=== PATIENT | female | born 1970 | race Caucasian/White ===

== ENCOUNTER 2016-06-02 18:06 | Emergency (ER) | payer SELFPAY ==
[~2016-06-02] VITALS: Ht 157.5 cm; Wt 74.1 kg
[2016-06-02 18:27] VITALS: Ht 157.5 cm; Wt 74.1 kg
[2016-06-02] MEDS ORDERED: FAMOTIDINE 20 MG TAB PO ONE (19:30)
[2016-06-02] MEDS ORDERED: ONDANSETRON (ODT) 4 MG TAB ODT STA (19:30)
[2016-06-02] MEDS ORDERED: ACETAMINOPHEN 500 MG TAB PO STA (19:30)
--- NOTE | 2016-06-02 19:46 | ERD ---
ER Documentation Chief Complaint Date/Time DATE: 06/02/16 TIME: 19:44 Chief Complaint upper abd pain x 1 hour HPI This is a 46-year-old female who presents to the emergency department today complaining of upper abdominal pain for the past hour. Patient states that this happened her 2 times in the past. Patient states that the pain radiates to her back sometimes. She states it is intermittent and last about 45 minutes. Patient states she has some nausea but no vomiting. She has not taken any medication for the pain because she did not know what to take. Denies any fevers or chills. ROS All systems reviewed and are negative except as per history of present illness. Medications Home Meds Active Scripts Famotidine* (Pepcid*) 20 Mg Tablet, 20 MG PO BID for 10 Days, TAB Prov:WISAM BLACKWELL PA-C 06/02/16 Ondansetron Hcl* (Zofran*) 4 Mg Tablet, 4 MG PO Q6H for NAUSEA AND/OR VOMITING, #30 TAB Prov:WISAM BLACKWELL PA-C 06/02/16 Acetaminophen* (Tylophen*) 500 Mg Capsule, 1 CAP PO Q6H Y for PAIN AND OR ELEVATED TEMP, #30 CAP Prov:WISAM BLACKWELL PA-C 06/02/16 Tramadol HCl (Tramadol HCl) 50 Mg Tablet, 50 MG PO Q4 Y for PAIN, #20 TAB Prov:WISAM BLACKWELLC 06/02/16 Allergies Allergies: Coded Allergies: No Known Drug Allergies (Verified Allergy, Unknown, 06/02/16) PMhx/Soc Medical and Surgical Hx: pt denies Surgical Hx History of Surgery: Yes (Breast cyst biopsy. BTL) Anesthesia Reaction: No Hx Neurological Disorder: No Hx Respiratory Disorders: No Hx Cardiac Disorders: Yes (HTN) Hx Psychiatric Problems: No Hx Miscellaneous Medical Probl: Yes (DM) Hx Alcohol Use: No Hx Substance Use: No Hx Tobacco Use: No Smoking Status: Never smoker Physical Exam Vitals Vital Signs Date Time Temp Pulse Resp B/P Pulse Ox O2 Delivery O2 Flow Rate FiO2 06/02/16 18:27 98.2 74 20 133/76 99 Physical Exam Const: No acute distress Head: Atraumatic Eyes: Normal Conjunctiva ENT: Normal External Ears, Nose and Mouth. Neck: Full range of motion..~ No meningismus. Resp: Clear to auscultation bilaterally Cardio: Regular rate and rhythm, no murmurs Abd: Soft, wild epigastric and right upper quadrant tenderness non distended. Normal bowel sounds. No right lower quadrant pain. No tenderness McBurney's. No left lower quadrant pain. Skin: No petechiae or rashes Back: No midline or flank tenderness. No CVA tenderness. Neur: Awake and alert Psych: Normal Mood and Affect Result Diagram: 06/02/16199906/02/161999 Results 24 hrs Laboratory Tests Test 06/02/16 20:00 Alanine Aminotransferase (ALT/SGPT) 41IU/L Albumin 4.3g/dl Albumin/Globulin Ratio 1.53 Alkaline Phosphatase 99IU/L Anion Gap 17 Aspartate Amino Transf (AST/SGOT) 35IU/L Basophils # 0.010^3/ul Basophils % 0.3% Blood Urea Nitrogen 13mg/dl Calcium Level 9.2mg/dl Carbon Dioxide Level 26mmol/L Chloride Level 104mmol/L Creatinine 0.55mg/dl Direct Bilirubin 0.00mg/dl Eosinophils # 0.110^3/ul Eosinophils % 1.3% Globulin 2.80g/dl Glucose Level 172mg/dl Hematocrit 40.7% Hemoglobin 14.0g/dl Indirect Bilirubin 0.1mg/dl Lipase 159U/L Lymphocytes # 1.510^3/ul Lymphocytes % 13.5% Mean Corpuscular Hemoglobin 31.2pg Mean Corpuscular Hemoglobin Concent 34.4g/dl Mean Corpuscular Volume 90.7fl Mean Platelet Volume 7.5fl Monocytes # 0.610^3/ul Monocytes % 4.9% Neutrophils # 9.110^3/ul Neutrophils % 80.0% Nucleated Red Blood Cells # 0.010^3/ul Nucleated Red Blood Cells % 0.0/100WBC Platelet Count 34735^3/UL Potassium Level 3.8mmol/L Red Blood Count 4.4810^6/ul Red Cell Distribution Width 13.2% Sodium Level 143mmol/L Total Bilirubin 0.1mg/dl Total Protein 7.1g/dl Urine Bilirubin NEGATIVE Urine Clarity CLEAR Urine Color LT. YELLOW Urine Glucose >=1000% Urine Hemoglobin NEGATIVE Urine Ketones TRACE Urine Leukocyte Esterase NEGATIVE Urine Nitrite NEGATIVE Urine Specific [place] 1.025 Urine Total Protein NEGATIVE Urine Urobilinogen 0.2 E.U./dL Urine pH 6.0 White Blood Count 11.410^3/ul Current Medications Medications (Trade) Dose Ordered Sig/Christie Route PRN Reason Start Time Stop Time Status Last Admin Dose Admin Famotidine (Pepcid) 20 mg ONCE ONCE PO 06/02/16 19:30 06/02/16 19:33 DC 06/02/16 19:58 Acetaminophen (Tylenol Tab) 500 mg ONCE STAT PO 06/02/16 19:30 06/02/16 19:33 DC 06/02/16 19:58 Ondansetron HCl (Zofran Odt) 4 mg ONCE STAT ODT 06/02/16 19:30 06/02/16 19:33 DC 06/02/16 19:58 DIAGNOSTIC IMAGING REPORT Patient: [place] : 1970 Age: 46 Sex: F MR #: [id number] DOS: 06/02/161929 Ordering MD: WISAM BLACKWELL PA-C Location: [facility] Room/Bed: PROCEDURE: Right upper quadrant abdominal ultrasound. CLINICAL INDICATION: Abdominal pain TECHNIQUE: Bernal scale and color doppler ultrasound images of the right upper quadrant. COMPARISON: None FINDINGS: Pancreas: Visualized portions appear of normal echogenicity, no focal lesions. Liver: Morphology: Normal in size and contour. Echogenicity: Increased echogenicity of the liver parenchyma suggestive of hepatic steatosis. Focal lesions: None. Main portal vein: Patent with hepatopetal flow. Biliary System: Normal appearing gallbladder wall. Multiple gallstones are present within the gallbladder. No intrahepatic biliary dilatation. Common bile duct measures 3.6 mm in maximal dimension. Kidneys: Right 10.5 cm in length. Right renal cortical thickness is preserved. Normal echogenicity. No hydronephrosis. No renal calculi. No focal lesions. No free fluid identified. IMPRESSION: Cholelithiasis without evidence of abnormal gallbladder wall thickening to suggest cholecystitis. Normal caliber of the intrahepatic and extrahepatic biliary system. Increased echogenicity of the liver parenchyma suggestive of hepatic steatosis. RPTAT: AADD .Connor Ayoub MD, MD Date Time Electronically viewed and signed by .Connor Ayoub MD, MD on 06/02/2016 20:25 .B/ CC: WISAM BLACKWELL PA-C Procedures/[facility] This 46-year-old female who presents the emergency department today complaining of upper abdominal pain that is intermittent. On physical exam patient has some mild epigastric and right upper quadrant tenderness and therefore did obtain some laboratory work as well as imaging per Laboratory work shows a mildly elevated white blood cell count. She is not anemic. Platelets are within normal limits. Liver function is within normal limits. Lipase is within normal limits. Glucose is in normal limits. Bilirubin is not elevated. UA is negative for infection Ultrasound right upper quadrant shows cholelithiasis without evidence of abnormal gallbladder wall thickening to suggest cholecystitis. There is normal caliber of the intrahepatic and extrahepatic biliary system. There is increased echogenicity of the liver suggestive of hepatic steatosis. There is no intrahepatic biliary dilatation. Patient symptoms at this time is consistent with biliary colic secondary to gallstones. There is no evidence of acute cholecystitis. Low suspicion for any acute surgical abdomen at this time. I have explained this to the patient. I have asked Mekhi to the patient that she needs to follow-up with a primary care doctor for referral to GI or general keyboard specialist. Patient was given Pepcid, Zofran and Tylenol here in the emergency department and pain was completely resolved she will be given a prescription for tramadol, Tylenol and Zofran and Pepcid for home.. At this time the patient is stable for discharge and outpatient management. Patient should follow up with their PCP in the next 1-2 days. I have given her a list of community resources. They may return to the emergency department sooner for any persistent or worsening of symptoms. Patient understood and agreed with the plan. Departure Diagnosis: Primary Impression: Abdominal pain Abdominal location: right upper quadrant Qualified Code: R10.11 - Right upper quadrant abdominal pain Condition: Fair WISAM BLACKWELL PA-C Jun 02, 2016 19:46
[2016-06-02 20:08] LABS: ADD UMIC NO; URINE BILIRUBIN (Dip) NEGATIVE (NEGATIVE); URINE BLOOD (Dip) NEGATIVE (NEGATIVE); URINE COLOR LT. YELLOW (YELLOW); URINE GLUCOSE (Dip) >=1000 % (NEGATIVE); URINE KETONES (Dip) TRACE (NEGATIVE); URINE LEUKOCYTE ESTERASE (Dip) NEGATIVE (NEGATIVE); URINE NITRITE (Dip) NEGATIVE (NEGATIVE); URINE TOTAL PROTEIN (Dip) NEGATIVE (NEGATIVE); URINE UROBILINOGEN (Dip) 0.2 E.U./dL (0.1-1.0)
[2016-06-02 20:11] LABS: BASOPHILS % 0.3 % (0.0-2.0); EOSINOPHILS # 0.1 10^3/ul (0.0-0.5); EOSINOPHILS % 1.3 % (0.0-7.0); HEMATOCRIT 40.7 % (37.0-47.0); LYMPHOCYTES # 1.5 10^3/ul (0.8-2.9); LYMPHOCYTES % 13.5 % (15.0-51.0); MEAN CORPUSCULAR HEMOGLOBIN 31.2 pg (29.0-33.0); MEAN CORPUSCULAR HGB CONC 34.4 g/dl (32.0-37.0); MEAN CORPUSCULAR VOLUME 90.7 fl (82.0-101.0); MEAN PLATELET VOLUME 7.5 fl (7.4-10.4); MONOCYTE # 0.6 10^3/ul (0.3-0.9); MONOCYTES % 4.9 % (0.0-11.0); NEUTROPHIL # 9.1 10^3/ul (1.6-7.5); PLATELET COUNT 275 10^3/UL (140-440); RED BLOOD COUNT 4.48 10^6/ul (4.20-5.40); RED CELL DISTRIBUTION WIDTH 13.2 % (11.5-14.5); UNCORRECTED WBC 11.4 10^3/ul (4.8-10.8); WHITE BLOOD COUNT 11.4 10^3/ul (4.8-10.8)
[2016-06-02 20:17] LABS: CONDITION 1
[2016-06-02 20:19] LABS: ALBUMIN 4.3 g/dl (3.3-4.9)
[2016-06-02 20:20] LABS: POTASSIUM 3.8 mmol/L (3.5-5.1)
[2016-06-02 20:22] LABS: BILIRUBIN,INDIRECT 0.1 mg/dl (0-1.1); BILIRUBIN,TOTAL 0.1 mg/dl (0.2-1.3); CREATININE 0.55 mg/dl (0.44-1.00)
[2016-06-02 20:23] LABS: ALBUMIN/GLOBULIN RATIO 1.53; CALCIUM 9.2 mg/dl (8.4-10.2); TOTAL PROTEIN 7.1 g/dl (6.1-8.1)
--- NOTE | 2016-06-02 20:25 | RADRPT ---
PROCEDURE: Right upper quadrant abdominal ultrasound. CLINICAL INDICATION: Abdominal pain TECHNIQUE: Bernal scale and color doppler ultrasound images of the right upper quadrant. COMPARISON: None FINDINGS: Pancreas: Visualized portions appear of normal echogenicity, no focal lesions. Liver: Morphology: Normal in size and contour. Echogenicity: Increased echogenicity of the liver parenchyma suggestive of hepatic steatosis. Focal lesions: None. Main portal vein: Patent with hepatopetal flow. Biliary System: Normal appearing gallbladder wall. Multiple gallstones are present within the gallbladder. No intrahepatic biliary dilatation. Common bile duct measures 3.6 mm in maximal dimension. Kidneys: Right 10.5 cm in length. Right renal cortical thickness is preserved. Normal echogenicity. No hydronephrosis. No renal calculi. No focal lesions. No free fluid identified. IMPRESSION: Cholelithiasis without evidence of abnormal gallbladder wall thickening to suggest cholecystitis. Normal caliber of the intrahepatic and extrahepatic biliary system. Increased echogenicity of the liver parenchyma suggestive of hepatic steatosis. RPTAT: AADD .Connor Ayoub MD, Date Time Electronically viewed and signed by .Connor Ayoub MD, on 06/02/2016 20:25 .B/
[2016-06-02] MEDS ORDERED: TRAM50TA2 PO (21:13)
[2016-06-02] MEDS ORDERED: ACET500C5 PO (21:13)
[2016-06-02] MEDS ORDERED: FAMO-18 PO (21:14)
[2016-06-02] MEDS ORDERED: ONDA4TAB8 PO (21:14)
[2016-06-02 21:51] VITALS: BP 161/78; PULSE 72; RESP 16; TEMP 98.3
== END 2016-06-02 21:53 | disposition home or self-care (01) ==
LOC: FTE 18:06
DX: R10.11 Right upper quadrant pain (principal); R11.0 Nausea; I10 Essential (primary) hypertension; E11.9 Type 2 diabetes mellitus without complications
CPT/HCPCS: 76705; 80053; 81003; 83690; 85025